=== PATIENT | female | born 1975 | race Caucasian/White ===

== ENCOUNTER → 2016-08-11 | Outpatient (REF) | payer OTHER ==
[~2016-08-11] MED LIST: FLAG500T; LEVA500T; PROZ20CA; VICO5TAB
[2016-08-11 21:25] LABS: FREE T4 1.46 NG/DL (0.76-1.46)
== END ==
LOC: M SFHCADAM 11:26
PROVIDERS: ATTEND Physician Assistant Medical
DX: E03.9 Hypothyroidism, unspecified (principal)

== ENCOUNTER → 2016-09-26 | Outpatient (REF) | payer OTHER ==
[2016-09-26 13:45] LABS: ALBUMIN 4.2 GM/DL (3.2-5.2); ALBUMIN/GLOBULIN RATIO 1.31 (1.00-1.93); ALKALINE PHOSPHATASE 109 U/L (45-117); ALT/SGPT 44 U/L (12-78); ANION GAP 9 MEQ/L (8-16); AST/SGOT 19 U/L (15-37); BILIRUBIN,TOTAL 0.3 MG/DL (0.2-1.0); BLOOD UREA NITROGEN 17 MG/DL (7-18); CALCIUM LEVEL 9.4 MG/DL (8.5-10.1); CARBON DIOXIDE LEVEL 27 MEQ/L (21-32); CHLORIDE LEVEL 103 MEQ/L (98-107); CREATININE FOR GFR 0.68 MG/DL (0.55-1.02); GLOMERULAR FILTRATION RATE > 60.0 (>58); GLUCOSE, FASTING 134 MG/DL (70-105); POTASSIUM SERUM 4.4 MEQ/L (3.5-5.1); SODIUM LEVEL 139 MEQ/L (136-145); TOTAL PROTEIN 7.4 GM/DL (6.4-8.2)
== END ==
LOC: M SFHCADAM 08:29
PROVIDERS: ATTEND Physician Assistant Medical
DX: E11.9 Type 2 diabetes mellitus without complications (principal)

== ENCOUNTER → 2017-01-01 | Outpatient (REF) | payer OTHER ==
[2017-01-01 12:57] LABS: ALBUMIN 4.1 GM/DL (3.2-5.2); ALBUMIN/GLOBULIN RATIO 1.24 (1.00-1.93); ALKALINE PHOSPHATASE 104 U/L (45-117); ALT/SGPT 32 U/L (12-78); ANION GAP 8 MEQ/L (8-16); AST/SGOT 14 U/L (15-37); BILIRUBIN,TOTAL 0.3 MG/DL (0.2-1.0); BLOOD UREA NITROGEN 13 MG/DL (7-18); CALCIUM LEVEL 9.5 MG/DL (8.5-10.1); CARBON DIOXIDE LEVEL 26 MEQ/L (21-32); CHLORIDE LEVEL 101 MEQ/L (98-107); CREATININE FOR GFR 0.64 MG/DL (0.55-1.02); GLOMERULAR FILTRATION RATE > 60.0 (>58); GLUCOSE, FASTING 161 MG/DL (70-105); POTASSIUM SERUM 4.4 MEQ/L (3.5-5.1); SODIUM LEVEL 135 MEQ/L (136-145); TOTAL PROTEIN 7.4 GM/DL (6.4-8.2)
== END ==
LOC: M SFHCADAM 08:59
PROVIDERS: ATTEND Physician Assistant Medical
DX: E11.9 Type 2 diabetes mellitus without complications (principal)

== ENCOUNTER → 2017-05-04 | Outpatient (REF) | payer OTHER | LOC: M LAB REF 11:22 | PROVIDERS: ATTEND Dermatology | DX: D18.09 Hemangioma of other sites (principal) ==

== ENCOUNTER → 2017-05-29 | Outpatient (REF) | payer OTHER ==
[2017-05-29 13:40] LABS: BASO # 0.1 10^3/uL (0.0-0.2); BASO % 0.8 % (0.0-1.0); EOS # 0.3 10^3/uL (0.0-0.50); EOS % 3.2 % (0.0-3.0); IMMATURE GRANULOCYTE % 0.5 % (0-0); LYMPH # 2.9 10^3/uL (1.5-4.5); LYMPH % 28.7 % (24.0-44.0); MEAN CORPUSCULAR HGB CONC 29.3 g/dl (32.0-36.5); MEAN CORPUSCULAR VOLUME 74.9 fl (80.0-96.0); MONO # 0.7 10^3/uL (0.0-0.8); MONO % 7.2 % (0.0-5.0); NEUTROPHILS % 59.6 % (36.0-66.0); PLATELET COUNT, AUTOMATED 432 10^3/uL (150-450); RED CELL DISTRIBUTION WIDTH 16.9 % (11.5-14.5)
[2017-05-29 14:06] LABS: FOLATE 12.2 NG/ML; PERCENT SATURATION 5.9 % (13.2-45.0)
== END ==
LOC: M SFHCADAM 09:26
PROVIDERS: ATTEND Physician Assistant Medical
DX: E55.9 Vitamin D deficiency, unspecified (principal); N92.1 Excessive and frequent menstruation with irregular cycle; D64.89 Other specified anemias

== ENCOUNTER → 2017-06-09 | Outpatient (CLI) | payer OTHER ==
--- NOTE | 2017-06-09 12:28 | REP ---
PELVIC ULTRASOUND: Real-time sonographic evaluation of the pelvis is performed utilizing transabdominal and endovaginal technique. The urinary bladder measures 8.4 x 6.3 x 9.2 cm. The uterus measures 9.0 x 5.1 x 6.0 cm. Fibroid in the right uterus measures 1.9 cm in diameter. Fibroid in the left uterus measures 2.6 cm in diameter. Nabothian cysts are seen in the region of the cervix. Both fibroids are posteriorly located. Endometrial thickness is 8 mm with no endometrial fluid collection. Ovaries are normal in size and echotexture, right ovary measuring 2.6 x 2.1 x 1.6 cm and the left ovary 2.5 x 1.5 x 2.1 cm. There is no adnexal mass or free fluid. IMPRESSION: Posterior right and left uterine fibroids. Signed by Sathish Rutledge MD 06/09/2017 04:57 P
== END ==
LOC: M WHC 10:13
PROVIDERS: ATTEND Nurse Practitioner Women's Health
DX: N92.1 Excessive and frequent menstruation with irregular cycle (principal); D25.9 Leiomyoma of uterus, unspecified

== ENCOUNTER → 2017-09-01 | Outpatient (REF) | payer OTHER ==
[2017-09-01 12:46] LABS: BASO # 0.1 10^3/uL (0.0-0.2); BASO % 0.7 % (0.0-1.0); EOS # 0.3 10^3/uL (0.0-0.50); EOS % 4.9 % (0.0-3.0); HEMATOCRIT 43.4 % (36.0-47.0); IMMATURE GRANULOCYTE % 0.3 % (0-3.0); LYMPH # 2.2 10^3/uL (1.5-4.5); LYMPH % 32.1 % (24.0-44.0); MEAN CORPUSCULAR HEMOGLOBIN 28.5 pg (27.0-33.0); MEAN CORPUSCULAR HGB CONC 32.3 g/dl (32.0-36.5); MEAN CORPUSCULAR VOLUME 88.2 fl (80.0-96.0); MONO # 0.5 10^3/uL (0.0-0.8); MONO % 7.1 % (0.0-5.0); NEUTROPHILS # 3.8 10^3/uL (1.8-7.7); NEUTROPHILS % 54.9 % (36.0-66.0); PLATELET COUNT, AUTOMATED 356 10^3/uL (150-450); RED BLOOD COUNT 4.92 10^6/uL (4.00-5.40); RED CELL DISTRIBUTION WIDTH 15.7 % (11.5-14.5); WHITE BLOOD COUNT 6.9 10^3/uL (4.0-10.0)
[2017-09-01 13:02] LABS: TOTAL 25(OH) VITAMIN D 39.8 NG/ML (30.0-100.0)
[2017-09-01 13:09] LABS: ALBUMIN 4.2 GM/DL (3.2-5.2); ALKALINE PHOSPHATASE 89 U/L (45-117); ALT/SGPT 50 U/L (12-78); ANION GAP 11 MEQ/L (8-16); AST/SGOT 24 U/L (7-37); BILIRUBIN,TOTAL 0.3 MG/DL (0.2-1.0); BLOOD UREA NITROGEN 16 MG/DL (7-18); CALCIUM LEVEL 9.2 MG/DL (8.5-10.1); CARBON DIOXIDE LEVEL 26 MEQ/L (21-32); CHLORIDE LEVEL 104 MEQ/L (98-107); CHOLESTEROL LEVEL 151 MG/DL (<200); CHOLESTEROL RISK RATIO 3.973 (<5); CREATININE FOR GFR 0.64 MG/DL (0.55-1.30); GLOMERULAR FILTRATION RATE > 60.0 (>58); GLUCOSE, FASTING 143 MG/DL (70-100); HDL CHOLESTEROL 38 MG/DL (>40); LDL CHOLESTEROL 82.8 MG/DL (<100); NON-HDL-C 113 MG/DL; POTASSIUM SERUM 4.1 MEQ/L (3.5-5.1); SODIUM LEVEL 141 MEQ/L (136-145); TOTAL PROTEIN 7.2 GM/DL (6.4-8.2); TRIGLYCERIDES LEVEL 151 MG/DL (<150)
[2017-09-01 13:10] LABS: ESTIMATED AVERAGE GLUCOSE 197 MG/DL (60-110); HEMOGLOBIN A1c 8.5 %
== END ==
LOC: M SFHCADAM 08:17
DX: E03.9 Hypothyroidism, unspecified (principal); E11.9 Type 2 diabetes mellitus without complications; E55.9 Vitamin D deficiency, unspecified
CPT/HCPCS: 84443

== ENCOUNTER → 2017-09-03 | Outpatient (REF) | payer OTHER ==
[2017-09-03 13:23] LABS: FERRITIN 27 NG/ML (8-252); IRON (FE) 55 UG/DL (50-170); PERCENT SATURATION 11.1 % (13.2-45.0); TOTAL IRON BINDING CAPACITY 495 UG/DL (250-450)
== END ==
LOC: M SFHCADAM 09:18
DX: D50.0 Iron deficiency anemia secondary to blood loss (chronic) (principal)

== ENCOUNTER → 2018-02-24 | Outpatient (REF) | payer OTHER ==
[2018-02-24 19:30] LABS: BASO # 0.1 10^3/uL (0.0-0.2); BASO % 0.7 % (0.0-1.0); EOS # 0.4 10^3/uL (0.0-0.50); EOS % 5.6 % (0.0-3.0); HEMATOCRIT 44.5 % (36.0-47.0); IMMATURE GRANULOCYTE % 0.5 % (0-3.0); LYMPH # 2.4 10^3/uL (1.5-4.5); LYMPH % 32.2 % (24.0-44.0); MEAN CORPUSCULAR HEMOGLOBIN 29.8 pg (27.0-33.0); MEAN CORPUSCULAR HGB CONC 31.5 g/dl (32.0-36.5); MEAN CORPUSCULAR VOLUME 94.7 fl (80.0-96.0); MONO # 0.4 10^3/uL (0.0-0.8); MONO % 5.8 % (0.0-5.0); NEUTROPHILS # 4.1 10^3/uL (1.8-7.7); NEUTROPHILS % 55.2 % (36.0-66.0); PLATELET COUNT, AUTOMATED 353 10^3/uL (150-450); RED CELL DISTRIBUTION WIDTH 13.7 % (11.5-14.5); WHITE BLOOD COUNT 7.4 10^3/uL (4.0-10.0)
[2018-02-24 19:37] LABS: TOTAL 25(OH) VITAMIN D 32.3 NG/ML (30.0-100.0)
[2018-02-24 19:39] LABS: ALBUMIN 3.8 GM/DL (3.2-5.2); ALBUMIN/GLOBULIN RATIO 1.15 (1.00-1.93); ALKALINE PHOSPHATASE 88 U/L (45-117); ALT/SGPT 40 U/L (12-78); ANION GAP 11 MEQ/L (8-16); AST/SGOT 17 U/L (7-37); BILIRUBIN,TOTAL 0.2 MG/DL (0.2-1.0); BLOOD UREA NITROGEN 8 MG/DL (7-18); CALCIUM LEVEL 9.1 MG/DL (8.5-10.1); CARBON DIOXIDE LEVEL 23 MEQ/L (21-32); CHLORIDE LEVEL 107 MEQ/L (98-107); CHOLESTEROL LEVEL 200 MG/DL (<200); CHOLESTEROL RISK RATIO 4.878 (<5); CREATININE FOR GFR 0.64 MG/DL (0.55-1.30); FERRITIN 21 NG/ML (8-252); FREE T4 1.03 NG/DL (0.76-1.46); GLOMERULAR FILTRATION RATE > 60.0 (>58); GLUCOSE, FASTING 138 MG/DL (70-100); HDL CHOLESTEROL 41 MG/DL (>40); IRON (FE) 50 UG/DL (50-170); LDL CHOLESTEROL 114.2 MG/DL (<100); NON-HDL-C 159 MG/DL; PERCENT SATURATION 11.4 % (13.2-45.0); POTASSIUM SERUM 4.3 MEQ/L (3.5-5.1); SODIUM LEVEL 141 MEQ/L (136-145); TOTAL IRON BINDING CAPACITY 437 UG/DL (250-450); TOTAL PROTEIN 7.1 GM/DL (6.4-8.2); TRIGLYCERIDES LEVEL 224 MG/DL (<150)
[2018-02-24 21:10] LABS: ESTIMATED AVERAGE GLUCOSE 189 MG/DL (60-110); HEMOGLOBIN A1c 8.2 %
== END ==
LOC: M SFHCADAM 11:26
DX: E11.9 Type 2 diabetes mellitus without complications (principal); D50.0 Iron deficiency anemia secondary to blood loss (chronic)
CPT/HCPCS: 83550

== ENCOUNTER → 2018-06-01 | Outpatient (REF) | payer OTHER, MEDICAID ==
[2018-06-01 13:34] LABS: FREE T4 1.22 NG/DL (0.76-1.46)
== END ==
LOC: M SFHCADAM 08:00
DX: E03.9 Hypothyroidism, unspecified (principal)
CPT/HCPCS: 84443

== ENCOUNTER → 2018-09-01 | Outpatient (REF) | payer OTHER, MEDICAID ==
[2018-09-01 12:48] LABS: BASO # 0.1 10^3/uL (0.0-0.2); BASO % 0.7 % (0.0-1.0); EOS # 0.3 10^3/uL (0.0-0.50); EOS % 3.7 % (0.0-3.0); HEMOGLOBIN 14.4 g/dl (12.0-15.5); LYMPH # 2.5 10^3/uL (1.5-4.5); LYMPH % 33.1 % (24.0-44.0); MEAN CORPUSCULAR HEMOGLOBIN 30.1 pg (27.0-33.0); MEAN CORPUSCULAR HGB CONC 33.5 g/dl (32.0-36.5); MEAN CORPUSCULAR VOLUME 89.8 fl (80.0-96.0); MONO # 0.5 10^3/uL (0.0-0.8); MONO % 6.6 % (0.0-5.0); NEUTROPHILS # 4.2 10^3/uL (1.8-7.7); NEUTROPHILS % 55.5 % (36.0-66.0); PLATELET COUNT, AUTOMATED 329 10^3/uL (150-450); RED BLOOD COUNT 4.79 10^6/uL (4.00-5.40); WHITE BLOOD COUNT 7.5 10^3/uL (4.0-10.0)
[2018-09-01 13:01] LABS: ALBUMIN 3.7 GM/DL (3.2-5.2); ALT/SGPT 38 U/L (12-78); BILIRUBIN,TOTAL 0.3 MG/DL (0.2-1.0); BLOOD UREA NITROGEN 15 MG/DL (7-18); CARBON DIOXIDE LEVEL 25 MEQ/L (21-32); CHLORIDE LEVEL 103 MEQ/L (98-107); CHOLESTEROL LEVEL 181 MG/DL (<200); CHOLESTEROL RISK RATIO 5.027 (<5); CREATININE FOR GFR 0.59 MG/DL (0.55-1.30); FERRITIN 23 NG/ML (8-252); GLOMERULAR FILTRATION RATE > 60.0 (>58); GLUCOSE, FASTING 253 MG/DL (70-100); HDL CHOLESTEROL 36 MG/DL (>40); IRON (FE) 52 UG/DL (50-170); NON-HDL-C 145 MG/DL; PERCENT SATURATION 12.2 % (13.2-45.0); POTASSIUM SERUM 4.1 MEQ/L (3.5-5.1); SODIUM LEVEL 136 MEQ/L (136-145); TOTAL IRON BINDING CAPACITY 426 UG/DL (250-450); TOTAL PROTEIN 6.9 GM/DL (6.4-8.2); TRIGLYCERIDES LEVEL 433 MG/DL (<150)
[2018-09-01 13:16] LABS: TOTAL 25(OH) VITAMIN D 31.7 NG/ML (30.0-100.0)
== END ==
LOC: M SFHCADAM 08:10
PROVIDERS: ATTEND Physician Assistant Medical
DX: E11.9 Type 2 diabetes mellitus without complications (principal); E03.9 Hypothyroidism, unspecified; E55.9 Vitamin D deficiency, unspecified; E78.2 Mixed hyperlipidemia; D50.0 Iron deficiency anemia secondary to blood loss (chronic)

== ENCOUNTER → 2018-10-15 | Outpatient (REF) | payer OTHER, MEDICAID ==
[2018-10-15 15:52] LABS: HEMOGLOBIN A1c 8.9 %
[2018-10-15 20:18] LABS: MALB URINE SIEMENS 27.5 MG/L
== END ==
LOC: M SFHCADAM 11:18
PROVIDERS: ATTEND Physician Assistant Medical
DX: E11.9 Type 2 diabetes mellitus without complications (principal); E03.9 Hypothyroidism, unspecified; E55.9 Vitamin D deficiency, unspecified; E78.2 Mixed hyperlipidemia; D50.0 Iron deficiency anemia secondary to blood loss (chronic)

== ENCOUNTER → 2018-10-25 | Outpatient (CLI) | payer OTHER ==
--- NOTE | 2018-10-25 13:17 | REPMRS ---
Patient History The patient states she had a clinical breast exam in 10/2018. Baseline Mammogram No known family history of cancer. Digital Woman Screen Mammo: October 25, 2018 - Exam #: [id number] Bilateral CC and MLO view(s) were taken. Technologist: Imani Veronica, Technologist FINDINGS: There are scattered fibroglandular densities. There is no evidence of dominant mass, architectural distortion, or clustered microcalcification typical of malignancy. 3-D tomosynthesis shows no additional findings. Assessment: BI-RADS/ACR category 1 mammogram. Negative Mammogram. Recommendation Routine screening mammogram of both breasts in 1 year (for women over age 40). This patient's Lifetime Breast Cancer RIsk is estimated at 10.4 %. This mammogram was interpreted with the aid of an FDA-approved computer-aided dectection system. Electronically Signed By: Ronald Lind MD 10/25/18 [id number]
== END ==
LOC: M WHC 10:37
PROVIDERS: ATTEND Nurse Practitioner Women's Health
DX: Z12.31 Encounter for screening mammogram for malignant neoplasm of breast (principal)

== ENCOUNTER → 2018-11-30 | Outpatient (CLI) | payer OTHER ==
--- NOTE | 2018-12-10 11:37 | REP ---
Clinical: Abnormal uterine bleeding. Menorrhagia . Technique: Transabdominal pelvic ultrasound followed by transvaginal examination for better evaluation of the endometrium and adnexa with color Doppler evaluation of the ovaries. Findings: Bladder is unremarkable and measures 8.8 x 4.2 x 4.8 cm . Heterogeneous myomatous uterus measures 12.3 x 5.6 x 6.8 cm . The endometrial complex measures 14.1 mm thickness. Posterior intramural fibroid measures 2.6 x 1.7 x 2.3 cm; anterior left lateral fibroid measures 2.9 x 2.5 x 2.4 cm; posterior subserosal fibroid measures 2.6 x 2.2 x 2.3 cm. Right ovary is not visualized. Left ovary measures 3.3 x 2.7 x 3.6 cm and includes 2.4 cm dominant follicle. Left RI = 0.54. Impression: 1. Heterogeneous myomatous uterus. 2. Left ovary without torsion. Right ovary not visualized. Electronically Signed by Tayo Murray MD 12/10/2018 11:28 A
== END ==
LOC: M RAD 09:32
PROVIDERS: ATTEND Obstetrics & Gynecology
DX: D25.9 Leiomyoma of uterus, unspecified (principal)

== ENCOUNTER → 2018-12-23 | Outpatient (REF) | payer OTHER, MEDICAID ==
[~2018-12-23] MED LIST changes: +OXYC1TAB23 PO
[2018-12-25 17:16] LABS: HPV HYBRID CAPTURE II Negative (Negative)
== END ==
LOC: M LAB REF 13:33
PROVIDERS: ATTEND Obstetrics & Gynecology
DX: N92.0 Excessive and frequent menstruation with regular cycle (principal)

== ENCOUNTER → 2019-01-11 | Outpatient (REF) | payer OTHER, MEDICAID ==
[~2019-01-11] MED LIST changes: +ATOR40TA75 PO; +BIOT10TA2 PO; +CALC600T5 PO; +FERR325T82 PO; +GEMF600T5 PO; +GLIP5TAB20 PO; +LEVO200T4 PO; +LISI-542 PO; +METF10004 PO; +TRUL0.5I SC; +VITA50005 PO; +VITA500T3 PO
[2019-01-11 12:54] LABS: BASO # 0.1 10^3/uL (0.0-0.2); BASO % 0.8 % (0.0-1.0); EOS # 0.2 10^3/uL (0.0-0.50); EOS % 2.8 % (0.0-3.0); HEMOGLOBIN 14.7 g/dl (12.0-15.5); LYMPH # 2.3 10^3/uL (1.5-4.5); LYMPH % 31.1 % (24.0-44.0); MEAN CORPUSCULAR HEMOGLOBIN 30.6 pg (27.0-33.0); MEAN CORPUSCULAR HGB CONC 33.4 g/dl (32.0-36.5); MEAN CORPUSCULAR VOLUME 91.5 fl (80.0-96.0); MONO # 0.5 10^3/uL (0.0-0.8); MONO % 7.5 % (0.0-5.0); NEUTROPHILS # 4.1 10^3/uL (1.8-7.7); NEUTROPHILS % 57.1 % (36.0-66.0); PLATELET COUNT, AUTOMATED 288 10^3/uL (150-450); RED BLOOD COUNT 4.81 10^6/uL (4.00-5.40); WHITE BLOOD COUNT 7.2 10^3/uL (4.0-10.0)
[2019-01-11 13:37] LABS: ALBUMIN 3.9 GM/DL (3.2-5.2); ALT/SGPT 54 U/L (12-78); BILIRUBIN,TOTAL 0.4 MG/DL (0.2-1.0); BLOOD UREA NITROGEN 13 MG/DL (7-18); CARBON DIOXIDE LEVEL 27 MEQ/L (21-32); CHLORIDE LEVEL 103 MEQ/L (98-107); CHOLESTEROL LEVEL 187 MG/DL (<200); CHOLESTEROL RISK RATIO 5.054 (<5); CREATININE FOR GFR 0.68 MG/DL (0.55-1.30); FERRITIN 50 NG/ML (8-252); GLOMERULAR FILTRATION RATE > 60.0 (>58); GLUCOSE, FASTING 211 MG/DL (70-100); HDL CHOLESTEROL 37 MG/DL (>40); IRON (FE) 71 UG/DL (50-170); LDL CHOLESTEROL 87 MG/DL (<100); NON-HDL-C 150 MG/DL; PERCENT SATURATION 15.6 % (13.2-45.0); POTASSIUM SERUM 4.2 MEQ/L (3.5-5.1); SODIUM LEVEL 137 MEQ/L (136-145); TOTAL 25(OH) VITAMIN D 30.7 NG/ML (30.0-100.0); TOTAL IRON BINDING CAPACITY 455 UG/DL (250-450); TOTAL PROTEIN 7.3 GM/DL (6.4-8.2); TRIGLYCERIDES LEVEL 316 MG/DL (<150)
[2019-01-11 14:40] LABS: HEMOGLOBIN A1c 8.6 %
== END ==
LOC: M SFHCADAM 09:23
PROVIDERS: ATTEND Physician Assistant Medical
DX: E11.9 Type 2 diabetes mellitus without complications (principal); E03.9 Hypothyroidism, unspecified; E55.9 Vitamin D deficiency, unspecified; E78.2 Mixed hyperlipidemia; D50.0 Iron deficiency anemia secondary to blood loss (chronic)

== ENCOUNTER → 2019-01-18 | Outpatient (CLI) | payer OTHER, MEDICAID ==
[~2019-01-18] MED LIST changes: +CYAN500T8 PO; +PERCOCET PO; -VITA500T3 PO
--- NOTE | 2019-01-19 07:22 | ECGEPIP ---
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
== END ==
LOC: M EKG 12:52
PROVIDERS: ATTEND Anesthesiology
DX: Z01.818 Encounter for other preprocedural examination (principal); E11.9 Type 2 diabetes mellitus without complications

== ENCOUNTER 2019-02-01 05:32 | Day surgery (SDC) | payer OTHER ==
[~2019-02-01] VITALS: Ht 154.9 cm; Wt 82.1 kg
[~2019-02-01 05:32] MED LIST changes: -PERCOCET PO
[2019-02-01] MEDS ORDERED: LR 1,000 ML IV ONE (06:00)
[2019-02-01 06:17] LABS: URINE PREG TEST NEGATIVE (NEGATIVE)
[2019-02-01] MEDS ORDERED: dexameTHASONE 4 MG/ML 1ML VIAL (J1100) As Ordered ONE ×2 (06:49→06:50)
[2019-02-01] MEDS ORDERED: KETOROLAC 60 MG/2 ML VIAL (J1885) As Ordered ONE (06:49)
[2019-02-01] MEDS ORDERED: ONDANSETRON 4MG/2ML VIAL (J2405) As Ordered ONE (06:49)
[2019-02-01] MEDS ORDERED: LIDOCAINE 2% INJ 100 MG/5 ML SDV (FOR ANES.) As Ordered ONE (06:50)
[2019-02-01] MEDS ORDERED: PROPOFOL 200 MG/20 ML VIAL As Ordered ONE (06:50)
[2019-02-01] MEDS ORDERED: ROCURONIUM BROMIDE 50 MG/5 ML VIAL As Ordered ONE ×2 (06:50→09:29)
[2019-02-01] MEDS ORDERED: MIDAZOLAM INJ 2 MG/2 ML VIAL (J2250) As Ordered ONE (06:55)
[2019-02-01] MEDS ORDERED: fentaNYL 250 MCG/5 ML INJECTION (J3010) As Ordered ONE (06:55)
[2019-02-01] MEDS ORDERED: BUPIVACAINE HCL 0.25% 30 ML VIAL As Ordered ONE (07:03)
[2019-02-01] MEDS ORDERED: METHYLENE BLUE 0.5% (5MG/ML) 10 ML AMP (PROVAYBLUE)(Q9968 PER 1MG) As Ordered ONE (07:03)
[2019-02-01] MEDS ORDERED: ACETAMINOPHEN 1000MG 100ML IV BTL (OFIRMEV) (J0131 PER 10MG) As Ordered ONE (07:45)
[2019-02-01] MEDS ORDERED: METOCLOPRAMIDE INJ 10MG/2ML VIAL (J2765) As Ordered ONE (08:17)
[2019-02-01] MEDS ORDERED: SUGAMMADEX SODIUM 500 MG/5 ML VIAL (BRIDION) As Ordered ONE (08:18)
[2019-02-01] MEDS ORDERED: HYDROmorphone HCL 2 MG/ML 1ML VIAL (J1170) As Ordered ONE (09:02)
[2019-02-01] MEDS ORDERED: KETAMINE HCL 200 MG/20 ML VIAL As Ordered ONE (09:26)
[2019-02-01] MEDS ORDERED: HumaLOG INSULIN (NovoLOG) PER UNIT As Ordered ONE (11:29)
[2019-02-01] MEDS ORDERED: PROMETHAZINE INJ 25 MG/ML VIAL (J2550) IV PRN (11:45)
[2019-02-01] MEDS ORDERED: ONDANSETRON 4MG/2ML VIAL (J2405) IV PRN (11:45)
[2019-02-01] MEDS ORDERED: MORPHINE 4 MG/ML 1ML VIAL/SYRINGE (J2270) IV PRN (11:45)
[2019-02-01] MEDS ORDERED: fentaNYL 100 MCG/2 ML INJECTION (J3010) IV PRN (11:45)
[2019-02-01] MEDS ORDERED: PERCOCET 5MG/325MG TAB PO PRN (11:45)
[2019-02-01] MEDS ORDERED: LR 1,000 ML IV SCH (11:45)
[2019-02-01] MEDS ORDERED: HumaLOG INSULIN (NovoLOG) PER UNIT SC ONE (11:45)
[2019-02-01] MEDS: oxyCODONE 5MG TAB PO PRN ×2 (11:53→12:23)
[2019-02-01] MEDS ORDERED: PERCOCET PO (12:03)
[2019-02-01 13:40] VITALS: BP 139/65
[2019-02-01 14:40] VITALS: BP 121/58
[2019-02-01 16:00] VITALS: BP 118/58
[2019-02-01] MEDS: KETOROLAC 30 MG/ML VIAL (J1885) IV SCH ×2 (17:17→22:25)
[2019-02-01 17:40] VITALS: BP 127/68
[2019-02-01] MEDS ORDERED: GLUCAGON FOR INJ 1 MG VIAL (J1610) SC PRN (18:00)
[2019-02-01] MEDS ORDERED: DEXTROSE 50% 50 ML SYRINGE IV PRN (18:00)
[2019-02-01] MEDS ORDERED: GLUCOSE 4 GM CHEW TABLET PO PRN (18:00)
[2019-02-01] MEDS ORDERED: SLF 3 ML SYR IV PRN (18:15)
[2019-02-01] MEDS: PERCOCET 5MG/325MG TAB PO PRN (19:20)
[2019-02-01 20:00] VITALS: BP 118/65
[2019-02-01] MEDS ORDERED: HumaLOG INSULIN (NovoLOG) PER UNIT SC SCH (21:00)
--- NOTE | 2019-02-01 22:25 | RO ---
DATE OF PROCEDURE: 02/01/2019 PREOPERATIVE DIAGNOSES: 1. Abnormal uterine bleeding. 2. Fibroid uterus. POSTOPERATIVE DIAGNOSES: 1. Abnormal uterine bleeding. 2. Fibroid uterus. PROCEDURES PERFORMED: 1. Robotic-assisted laparoscopic hysterectomy. 2. Lysis of adhesions. 3. Bilateral salpingectomy. 4. Cystoscopy. SURGEON: Carlotta Lee MD ASSISTANTS: Xiomara Jeffers NP and resident, Hermila Traylor MD, PGY3 ANESTHESIA: General endotracheal anesthesia. ESTIMATED BLOOD LOSS: 50 mL. INTRAVENOUS FLUIDS: 2100 mL of lactated Ringer's solution. URINE OUTPUT: 200 mL. PREOPERATIVE ANTIBIOTICS: 2 grams of Ancef. INFECTION CLASSIFICATION: 2. SPECIMENS: Cervix, uterus, bilateral fallopian tube. OPERATIVE FINDINGS: Patient with a large fibroid uterus, normal appearing adnexa, dense abdominal adhesions involving the lower uterine segment to the anterior abdominal wall, extensive omental adhesions to the anterior abdominal wall. Cystoscopic findings revealed normal bladder mucosa, bilateral ureteral jets were observed. No foreign bodies or objects observed. DESCRIPTION OF OPERATION: After informed consent was obtained and written consent was reviewed, the patient was brought to the operating room where she was placed under general anesthesia. She was then placed in the lithotomy position and was prepped and draped in a normal sterile fashion. A time-out in the operating room was performed identifying the patient, procedure to be performed, as well as drug allergies. A speculum was placed revealing the cervix, the anterior aspect of the cervix was stitched with #0 Vicryl, a small VCare uterine manipulator was advanced through the cervical os and was insufflated with 7 mL of air. The cervical cap as well as the vaginal sleeve was advanced into the vagina. Instruments were removed from the vagina. Graham catheter was then placed and set to gravity. Gloves were changed, and attention was turned to the patient's abdomen where Veress needle was placed through the umbilicus. A pneumoperitoneum was obtained with CO2 gas. The supraumbilical area was infused with 0.25% Marcaine and an incision was made in this area. 8 mm trocar and sleeve was advanced through this incision, laparoscope was then placed revealing intraabdominal placement. Four additional port sites were placed, two to each side of the umbilicus. Each one of these areas were infused with 0.25% Marcaine. Incisions were made in each one of these areas and 8 mm trocar and sleeve were advanced through these incisions under direct visualization. Next, the Da Trace was then docked, utilizing a camera arm with three operative arms. Lysis of adhesions was then performed, releasing the omentum adhesions from the anterior abdominal wall. Lysis of adhesions was continued along the lower uterine segment which was adhered to the anterior abdominal wall. Next, the mesosalpinx bilaterally were cauterized and ligated with good hemostasis noted. The utero-ovarian ligaments bilaterally cauterized and ligated with good hemostasis noted. The round ligaments on both sides were cauterized and ligated with good hemostasis noted. Next, the anterior lip of the broad ligament was dissected along the bladder, creating a bladder flap. The remainder of the broad and cardinal ligaments were cauterized and ligated with good hemostasis noted. The uterine vessels were then skeletonized bilaterally and were cauterized and ligated with good hemostasis noted. Next, utilizing Endo monopolar scissors, anterior and posterior colpotomies were made. Then, the uterus was detached. The Da Trace was then undocked. I then proceeded to bivalving the uterus and removed it vaginally. The Da Trace was then redocked, surgical sites were inspected and noted to be hemostatic. The vaginal cuff was then closed using an #0 V-Loc system in a running nonlocking fashion. Surgical sites were irrigated. Maria Victoria was applied over the surgical field. The Da Trace was then undocked, Graham catheter was removed and cystoscopy was performed. The cystoscope was advanced transurethrally through the bladder. Cystoscopy was performed showing normal bladder mucosa. No foreign objects. Bilateral jets were observed. The cystoscope was then removed, the bladder was drained. Attention was then turned to the patient's abdomen. All five port sites were closed with #4-0 Monocryl and dressed with Dermabond. The patient was then taken out of the lithotomy position, was awakened from general anesthesia and taken to recovery in stable condition. Counts were correct. Xiomara Jeffers, my surgical physician assistant, played an essential role during the surgery. She assisted with port placement, manipulation of the uterus. Edited 02/01/2019 tori TOLEDO
[2019-02-01] MEDS: SLF 3 ML SYR IV SCH (22:26)
[2019-02-02] VITALS: BP 104/60
[2019-02-02] MEDS: PERCOCET 5MG/325MG TAB PO PRN ×2 (01:49→08:18)
[2019-02-02 04:00] VITALS: BP 110/55
[2019-02-02] MEDS: KETOROLAC 30 MG/ML VIAL (J1885) IV SCH ×2 (04:30→10:53)
[2019-02-02] MEDS: SLF 3 ML SYR IV SCH (05:56)
[2019-02-02 06:53] LABS: HEMATOCRIT 35.3 % (36.0-47.0); HEMOGLOBIN 11.5 g/dl (12.0-15.5); MEAN CORPUSCULAR HEMOGLOBIN 30.1 pg (27.0-33.0); MEAN CORPUSCULAR HGB CONC 32.6 g/dl (32.0-36.5); MEAN CORPUSCULAR VOLUME 92.4 fl (80.0-96.0); PLATELET COUNT, AUTOMATED 252 10^3/uL (150-450); RED BLOOD COUNT 3.82 10^6/uL (4.00-5.40); WHITE BLOOD COUNT 8.2 10^3/uL (4.0-10.0)
[2019-02-02] MEDS ORDERED: HumaLOG INSULIN (NovoLOG) PER UNIT SC SCH (07:30)
--- NOTE | 2019-02-02 07:36 | IPNPDOC ---
Date Seen The patient was seen on 02/02/19. Progress Note SUBJECTIVE: 43 yo POD#1 s/p RA TLH, BS, cysto for abnormal uterine bleeding. She is feeling well this am. Pain has been well controlled. She is tolerating PO, voiding, and ambulating. No CP, SOB, dizziness, n/v OBJECTIVE PHYSICAL EXAMINATION: VITAL SIGNS: Please see below. GENERAL: NAD CARDIOVASCULAR: RRR RESPIRATORY: CTA b/l ABDOMINAL: obese, soft, non tender. 5 lsc port sites c/d/i with glue over incisions EXTREMITIES: wwp, non tender LABORATORY DATA, IMAGING STUDIES, MICROBIOLOGY: Please see below. ASSESSMENT AND PLAN: 43 yo POD#1 s/p RA TONYH, BS, cysto for abnormal uterine bleeding and fibroids, stable and recovering well. T PLAN: Neuro/pain: continue current pain regimen CV/Pulm: no acute issues. Continue HLD/HTN medications at home FEN/GI: tolerating regular diet. Zofran prn, colace prn Endo: DMII: on ISS while admitted, will transition back to PO meds on discharge. Continue synthroid for hypothyroidism : voiding spontaneously Heme: Hct 35 this am PPx: encourage ambulation, SCDs DISPOSITION: d/c home today VS, I&O, 24H, [facility] Vital Signs/I&O Vital Signs Date Time Temp Pulse Resp B/P (MAP) Pulse Ox O2 Delivery O2 Flow Rate FiO2 02/02/19 04:00 97.9 66 18 110/55 (73) 95 02/01/19 11:39 2 I&O- Last 24 Hours up to 6 AM 02/02/19 05:59 Intake Total 3080 ml Output Total 1650 ml Balance 1430 ml Laboratory Data 24H LABS Laboratory Tests 2 02/01/19 08:46: Bedside Glucose (Misc Panel) 228H 02/01/19 11:18: Bedside Glucose (Misc Panel) 287H 02/01/19 12:10: Bedside Glucose (Misc Panel) 339H 02/01/19 12:12: Bedside Glucose (Misc Panel) 283H 02/01/19 13:08: Bedside Glucose (Misc Panel) 277H 02/01/19 17:26: Bedside Glucose (Misc Panel) 248H 02/01/19 20:33: Bedside Glucose (Misc Panel) 393H 02/02/19 06:24: Nucleated Red Blood Cells % (auto) 0.0 CBC/BMP Laboratory Tests 02/02/19 06:24 Red Blood Count 3.82 L, Mean Corpuscular Volume 92.4, Mean Corpuscular Hemoglobin 30.1, Mean Corpuscular Hemoglobin Concent 32.6, Red Cell Distribution Width 13.2 OMID RUVALCABA PGY-3 Feb 02, 2019 07:36
--- NOTE | 2019-02-02 07:40 | DS.PDOC ---
Discharge Summary General Date of Admission Date of Discharge 02/02/19 Attending Physician: VADIM ESPINOSA MD. Discharge Summary PROCEDURES PERFORMED DURING STAY: RA TLH, BS, cysto. ADMITTING DIAGNOSES: 1. abnormal uterine bleeding 2. fibroid uterus DISCHARGE DIAGNOSES: 1. s/p robotic assisted hysterectomy COMPLICATIONS/CHIEF COMPLAINT: Abnormal Uterine Bleeding. HISTORY OF PRESENT ILLNESS: 43 yo with long history of menorrhagia and known fibroid uterus presenting for definitive management HOSPITAL COURSE: On 02/01 she underwent RA TLH, BS, cysto. Procedure was notable for multiple adhesions of uterus to anterior abdominal wall. Please see operative note for details. She was admitted overnight for observation. She voided on POD#0, her pain was well controlled. Her diet was advanced. She was discharged home on POD#1. She was continued on her home medications while admitted with the exception of oral hypoglycemics, she was treated with an insulin sliding scale. DISCHARGE MEDICATIONS: Please see below. ALLERGIES: Please see below. LABORATORY DATA: Please see below. ACTIVITY: As tolerated. DIET: diabetic DISCHARGE PLAN: d/c home without services DISCHARGE INSTRUCTIONS: 1. Please follow up in 2 weeks as scheduled 2. If you experience any of the following, please call or present to care: fever >100.4, severe pain not controlled with medications, inability to tolerate eating or drinking, heavy vaginal bleeding, or any other concerning symptoms. DISCHARGE CONDITION: Stable. TIME SPENT ON DISCHARGE: Greater than 25 minutes. Vital Signs/I&Os Vital Signs Date Time Temp Pulse Resp B/P (MAP) Pulse Ox O2 Delivery O2 Flow Rate FiO2 02/02/19 04:00 97.9 66 18 110/55 (73) 95 02/01/19 11:39 2 I&O- Last 24 Hours up to 6 AM 02/02/19 05:59 Intake Total 3080 ml Output Total 1650 ml Balance 1430 ml Laboratory Data Labs 24H Laboratory Tests 2 02/01/19 08:46: Bedside Glucose (Misc Panel) 228H 02/01/19 11:18: Bedside Glucose (Misc Panel) 287H 02/01/19 12:10: Bedside Glucose (Misc Panel) 339H 02/01/19 12:12: Bedside Glucose (Misc Panel) 283H 02/01/19 13:08: Bedside Glucose (Misc Panel) 277H 02/01/19 17:26: Bedside Glucose (Misc Panel) 248H 02/01/19 20:33: Bedside Glucose (Misc Panel) 393H 02/02/19 06:24: Nucleated Red Blood Cells % (auto) 0.0 CBC/BMP Laboratory Tests 02/02/19 06:24 Red Blood Count 3.82 L, Mean Corpuscular Volume 92.4, Mean Corpuscular Hemoglobin 30.1, Mean Corpuscular Hemoglobin Concent 32.6, Red Cell Distribution Width 13.2 FSBS Laboratory Tests Test 02/01/19 08:46 02/01/19 11:18 02/01/19 12:10 02/01/19 12:12 Range/Units Bedside Glucose (Misc Panel) 228 287 339 283 70-105 MG/DL Test 02/01/19 13:08 02/01/19 17:26 02/01/19 20:33 Range/Units Bedside Glucose (Misc Panel) 277 248 393 70-105 MG/DL Discharge Medications Scheduled Atorvastatin Calcium (Atorvastatin Calcium) 40 Mg Tablet, 40 MG PO DAILY, (Reported) Biotin (Biotin) 10 Mg Tablet, 10 MG PO DAILY, (Reported) Calcium Carbonate (Calcium) 600 Mg Tablet, 600 MG PO DAILY, (Reported) Cyanocobalamin (Vitamin B-12) (Vitamin B-12) 500 Mcg Tablet, 500 MCG PO DAILY, (Reported) Dulaglutide (Trulicity) 1.5 Mg/0.5 Ml Pen.injctr, 1.5 MG SC QWEEK, (Reported) thursday Ergocalciferol (Vitamin D2) (Vitamin D2) 50,000 Unit Capsule, 50,000 UNIT PO QWEEK, (Reported) thursday Ferrous Sulfate (Iron) 325 Mg Tablet, 325 MG PO TID, (Reported) Gemfibrozil (Gemfibrozil) 600 Mg Tablet, 600 MG PO BID, (Reported) Glipizide (Glipizide ER) 5 Mg Tab.er.24, 10 MG PO BID, (Reported) Levothyroxine Sodium (Levothyroxine Sodium) 200 Mcg Tablet, 200 MCG PO DAILY, (Reported) Lisinopril (Lisinopril) 5 Mg Tablet, 2.5 MG PO DAILY, (Reported) Metformin HCl (Metformin HCl) 1,000 Mg Tablet, 1,000 MG PO BID, (Reported) Scheduled PRN Oxycodone/Acetaminophen (Oxycodone-Acetaminophen 5-325) 1 Each Tablet, 1-2 TAB PO Q6-8HP PRN for MODERATE PAIN Allergies Coded Allergies: aspirin (Verified Adverse Reaction, Intermediate, vomiting, migraines, 02/01/19) caffeine (Verified Adverse Reaction, Intermediate, vomiting, migraines, 02/01/19) OMID RUVALCABA PGY-3 Feb 02, 2019 07:40
[2019-02-02 08:00] VITALS: BP 124/61
== END 2019-02-02 11:55 | disposition home or self-care (01) ==
LOC: M SDC 05:32 → M PED 13:40 → M SDC 02-02 11:55
PROVIDERS: ATTEND Obstetrics & Gynecology
DX: N93.9 Abnormal uterine and vaginal bleeding, unspecified (principal); D25.1 Intramural leiomyoma of uterus; N72 Inflammatory disease of cervix uteri; E11.9 Type 2 diabetes mellitus without complications; E03.9 Hypothyroidism, unspecified; D64.9 Anemia, unspecified; F41.9 Anxiety disorder, unspecified; F32.9 Major depressive disorder, single episode, unspecified; G43.909 Migraine, unspecified, not intractable, without status migrainosus; Z88.6 Allergy status to analgesic agent; Z91.09 Other allergy status, other than to drugs and biological substances; Z79.899 Other long term (current) drug therapy
CPT/HCPCS: 36415; 58571; 84703; 85027; 86850; 86900; 86901; 88307; 96372; 96374; 96375; J0131; J0690; J1100; J1170; J1885; J2250; J2270; J2405; J2765; J3010; Q9968

== ENCOUNTER → 2019-03-01 | Outpatient (REF) | payer OTHER, MEDICAID ==
[~2019-03-01] MED LIST changes: +PERCOCET PO
== END ==
LOC: M SFHCADAM 12:00
PROVIDERS: ATTEND Physician Assistant Medical
DX: E03.9 Hypothyroidism, unspecified (principal)

== ENCOUNTER → 2019-08-03 | Outpatient (REF) | payer OTHER, MEDICAID ==
[2019-08-03 12:55] LABS: BASO # 0.1 10^3/uL (0.0-0.2); BASO % 0.7 % (0.0-1.0); EOS # 0.1 10^3/uL (0.0-0.5); HEMATOCRIT 48.5 % (36.0-47.0); HEMOGLOBIN 15.7 g/dl (12.0-15.5); LYMPH # 2.3 10^3/uL (1.5-5.0); LYMPH % 33.2 % (24.0-44.0); MEAN CORPUSCULAR HEMOGLOBIN 29.3 pg (27.0-33.0); MEAN CORPUSCULAR HGB CONC 32.4 g/dl (32.0-36.5); MEAN CORPUSCULAR VOLUME 90.7 fl (80.0-96.0); MONO # 0.5 10^3/uL (0.0-0.8); NEUTROPHILS # 3.9 10^3/uL (1.5-8.5); NEUTROPHILS % 56.8 % (36.0-66.0); PLATELET COUNT, AUTOMATED 307 10^3/uL (150-450); RED BLOOD COUNT 5.35 10^6/uL (4.00-5.40); WHITE BLOOD COUNT 6.9 10^3/uL (4.0-10.0)
[2019-08-03 13:13] LABS: ALBUMIN 4.1 GM/DL (3.2-5.2); ALT/SGPT 35 U/L (12-78); BILIRUBIN,TOTAL 0.5 MG/DL (0.2-1.0); BLOOD UREA NITROGEN 15 MG/DL (7-18); CALCIUM LEVEL 9.5 MG/DL (8.5-10.1); CARBON DIOXIDE LEVEL 26 MEQ/L (21-32); CHLORIDE LEVEL 102 MEQ/L (98-107); CREATININE FOR GFR 0.62 MG/DL (0.55-1.30); FERRITIN 75 NG/ML (8-252); GLOMERULAR FILTRATION RATE > 60.0 (>58); GLUCOSE, FASTING 237 MG/DL (70-100); IRON (FE) 111 UG/DL (50-170); PERCENT SATURATION 22.7 % (13.2-45.0); POTASSIUM SERUM 4.4 MEQ/L (3.5-5.1); SODIUM LEVEL 137 MEQ/L (136-145); TOTAL IRON BINDING CAPACITY 488 UG/DL (250-450); TOTAL PROTEIN 7.4 GM/DL (6.4-8.2)
[2019-08-03 14:56] LABS: HEMOGLOBIN A1c 10.3 %
== END ==
LOC: M SFHCADAM 07:59
PROVIDERS: ATTEND Family Medicine
DX: Z00.00 Encounter for general adult medical examination without abnormal findings (principal); D50.0 Iron deficiency anemia secondary to blood loss (chronic); E11.65 Type 2 diabetes mellitus with hyperglycemia

== ENCOUNTER → 2019-08-10 | Outpatient (REF) | payer OTHER, MEDICAID ==
[2019-08-10 19:44] LABS: MALB URINE SIEMENS 64.7 MG/L; MAU/CREAT RATIO 46.8 MCG/MG (0.0-30.0)
== END ==
LOC: M SFHCADAM 16:05
PROVIDERS: ATTEND Family Medicine
DX: E11.65 Type 2 diabetes mellitus with hyperglycemia (principal)

== ENCOUNTER → 2019-09-18 | Outpatient (REF) | payer OTHER, MEDICAID ==
[2019-09-18 17:41] LABS: HEMOGLOBIN A1c 9.7 %
== END ==
LOC: M SFHCADAM 08:37
PROVIDERS: ATTEND Family Medicine
DX: E11.65 Type 2 diabetes mellitus with hyperglycemia (principal)

== ENCOUNTER → 2019-12-29 | Outpatient (CLI) | payer OTHER ==
--- NOTE | 2019-12-29 17:10 | REPMRS ---
Patient History The patient states she has not had a clinical breast exam in over a year. No known family history of cancer. 3D TOMOSYNTHESIS WAS PERFORMED. [facility] lifetime risk for breast cancer is 10.2%. VOLOSITOA SHAHEEN B. Digital Woman Screen Mammo: December 29, 2019 - Exam #: [id number] Bilateral CC and MLO view(s) were taken. Technologist: Jolene Weston, Technologist Prior study comparison: October 25, 2018, bilateral digital woman screen mammo performed at [facility] [place]. FINDINGS: There are scattered fibroglandular densities. There has been no change in the appearance of the mammogram from the prior studies. There is a mild amount of residual fibroglandular tissue which is fairly symmetric. There is no interval development of dominant mass, architectural distortion, or clustered microcalcification suggestive of malignancy. Assessment: BI-RADS/ACR category 1 mammogram. Negative Mammogram. Recommendation Routine screening mammogram in 1 year (for women over age 40). This mammogram was interpreted with the aid of an FDA-approved computer-aided dectection system. Electronically Signed By: Sathish Rutledge MD 12/29/19 [id number]
== END ==
LOC: M WHC 16:25
PROVIDERS: ATTEND Nurse Practitioner Women's Health
DX: Z12.31 Encounter for screening mammogram for malignant neoplasm of breast (principal)

== ENCOUNTER → 2020-03-06 | Outpatient (REF) | payer OTHER, MEDICAID ==
[~2020-03-06] MED LIST changes: -CALC600T5 PO; +CALC600T61 PO
[2020-05-16 03:24] LABS: ALBUMIN 4.2 GM/DL (3.2-5.2); ALT/SGPT 36 U/L (12-78); BILIRUBIN,TOTAL 0.8 MG/DL (0.2-1.0); BLOOD UREA NITROGEN 18 MG/DL (7-18); CALCIUM LEVEL 9.8 MG/DL (8.5-10.1); CARBON DIOXIDE LEVEL 25 MEQ/L (21-32); CHLORIDE LEVEL 100 MEQ/L (98-107); GLOMERULAR FILTRATION RATE > 60.0 (>58); GLUCOSE, FASTING 242 MG/DL (70-100); HEMOGLOBIN A1c 10.4 %; POTASSIUM SERUM 4.2 MEQ/L (3.5-5.1); SODIUM LEVEL 134 MEQ/L (136-145); TOTAL PROTEIN 7.7 GM/DL (6.4-8.2)
== END ==
LOC: M SFHCADAM 11:37
PROVIDERS: ATTEND Family Medicine
DX: E11.8 Type 2 diabetes mellitus with unspecified complications (principal)

== ENCOUNTER → 2020-04-21 | Outpatient (CLI) | payer OTHER ==
[2020-04-21 10:02] LABS: HEMOGLOBIN A1c 9.5 %
== END ==
LOC: M LAB 08:26
PROVIDERS: ATTEND Family Medicine
DX: E11.9 Type 2 diabetes mellitus without complications (principal)

== ENCOUNTER → 2020-07-27 | Outpatient (REF) | payer OTHER, MEDICAID ==
[~2020-07-27] MED LIST changes: +CYAN500T14 PO; -CYAN500T8 PO
[2020-07-27 13:21] LABS: BASO % 0.4 % (0.0-1.0); EOS # 0.2 10^3/uL (0.0-0.5); EOS % 2.2 % (0.0-3.0); HEMATOCRIT 45.2 % (36.0-47.0); HEMOGLOBIN 14.6 g/dl (12.0-15.5); LYMPH # 2.7 10^3/uL (1.5-5.0); LYMPH % 36.4 % (24.0-44.0); MEAN CORPUSCULAR HEMOGLOBIN 28.5 pg (27.0-33.0); MEAN CORPUSCULAR HGB CONC 32.3 g/dl (32.0-36.5); MEAN CORPUSCULAR VOLUME 88.1 fl (80.0-96.0); MONO # 0.6 10^3/uL (0.0-0.8); MONO % 7.6 % (0.0-5.0); NEUTROPHILS # 3.9 10^3/uL (1.5-8.5); NEUTROPHILS % 53.3 % (36.0-66.0); PLATELET COUNT, AUTOMATED 304 10^3/uL (150-450); RED BLOOD COUNT 5.13 10^6/uL (4.00-5.40); WHITE BLOOD COUNT 7.3 10^3/uL (4.0-10.0)
[2020-07-27 13:57] LABS: ALT/SGPT 46 U/L (12-78); BILIRUBIN,TOTAL 0.5 MG/DL (0.2-1.0); BLOOD UREA NITROGEN 15 MG/DL (7-18); CALCIUM LEVEL 9.1 MG/DL (8.5-10.1); CARBON DIOXIDE LEVEL 27 MEQ/L (21-32); CHLORIDE LEVEL 106 MEQ/L (98-107); GLOMERULAR FILTRATION RATE > 60.0 (>58); GLUCOSE, FASTING 140 MG/DL (70-100); SODIUM LEVEL 140 MEQ/L (136-145); TOTAL PROTEIN 6.7 GM/DL (6.4-8.2)
[2020-07-27 15:12] LABS: HEMOGLOBIN A1c 9.1 %
== END ==
LOC: M SFHCADAM 08:04
PROVIDERS: ATTEND Family Medicine
DX: Z00.00 Encounter for general adult medical examination without abnormal findings (principal)

== ENCOUNTER → 2021-01-07 | Outpatient (REF) | payer OTHER, MEDICAID ==
[~2021-01-07] MED LIST changes: -LISI-542 PO; +LISI-898 PO
[2021-01-07 13:30] LABS: ALBUMIN 3.7 GM/DL (3.2-5.2); ALT/SGPT 31 U/L (12-78); BILIRUBIN,TOTAL 0.4 MG/DL (0.2-1.0); BLOOD UREA NITROGEN 13 MG/DL (7-18); CALCIUM LEVEL 9.2 MG/DL (8.5-10.1); CARBON DIOXIDE LEVEL 27 MEQ/L (21-32); CHLORIDE LEVEL 105 MEQ/L (98-107); CREATININE FOR GFR 0.59 MG/DL (0.55-1.30); GLOMERULAR FILTRATION RATE > 60.0 (>58); GLUCOSE, FASTING 159 MG/DL (70-100); POTASSIUM SERUM 4.1 MEQ/L (3.5-5.1); SODIUM LEVEL 137 MEQ/L (136-145); TOTAL PROTEIN 7.1 GM/DL (6.4-8.2)
[2021-01-07 13:36] LABS: CREATININE, URINE 64.1 MG/DL; MALB URINE SIEMENS 9.4 MG/L; MAU/CREAT RATIO 14.6 MCG/MG (0.0-30.0)
[2021-01-07 14:01] LABS: HEMOGLOBIN A1c 9.2 %
== END ==
LOC: M SFHCADAM 08:49
PROVIDERS: ATTEND Family Medicine
DX: E11.69 Type 2 diabetes mellitus with other specified complication (principal)

== ENCOUNTER → 2021-07-02 | Outpatient (REF) | payer OTHER, MEDICAID ==
[~2021-07-02] MED LIST changes: -LISI-898 PO; +LISI5TAB11 PO
[2021-07-02 13:04] LABS: ALBUMIN 3.5 GM/DL (3.2-5.2); ALT/SGPT 58 U/L (12-78); BILIRUBIN,TOTAL 0.5 MG/DL (0.2-1.0); BLOOD UREA NITROGEN 10 MG/DL (7-18); CALCIUM LEVEL 9.2 MG/DL (8.5-10.1); CARBON DIOXIDE LEVEL 28 MEQ/L (21-32); CHLORIDE LEVEL 107 MEQ/L (98-107); CREATININE FOR GFR 0.56 MG/DL (0.55-1.30); GLOMERULAR FILTRATION RATE > 60.0 (>58); GLUCOSE, FASTING 112 MG/DL (70-100); POTASSIUM SERUM 4.1 MEQ/L (3.5-5.1); SODIUM LEVEL 141 MEQ/L (136-145); TOTAL PROTEIN 6.9 GM/DL (6.4-8.2)
[2021-07-02 13:19] LABS: HEMOGLOBIN A1c 8.6 %
== END ==
LOC: M SFHCADAM 09:22
PROVIDERS: ATTEND Family Medicine
DX: E11.65 Type 2 diabetes mellitus with hyperglycemia (principal)

== ENCOUNTER → 2022-01-07 | Outpatient (REF) | payer OTHER, MEDICAID ==
[2022-01-07 13:47] LABS: FREE T4 1.8 NG/DL (0.76-1.46); THYROID STIMULATING HORMONE 0.011 uIU/ML (0.358-3.740)
== END ==
LOC: M SFHCADAM 08:15
PROVIDERS: ATTEND Family Medicine
DX: E03.9 Hypothyroidism, unspecified (principal)

== ENCOUNTER → 2022-04-02 | Outpatient (CLI) | payer OTHER ==
[2022-04-02 14:57] LABS: ALBUMIN 3.6 GM/DL (3.2-5.2); ALT/SGPT 40 U/L (12-78); BILIRUBIN,TOTAL 0.6 MG/DL (0.2-1.0); BLOOD UREA NITROGEN 14 MG/DL (7-18); CALCIUM LEVEL 9.1 MG/DL (8.5-10.1); CARBON DIOXIDE LEVEL 28 MEQ/L (21-32); CHLORIDE LEVEL 106 MEQ/L (98-107); CREATININE FOR GFR 0.51 MG/DL (0.55-1.30); GLOMERULAR FILTRATION RATE > 60.0 (>58); GLUCOSE, FASTING 77 MG/DL (70-100); SODIUM LEVEL 139 MEQ/L (136-145); TOTAL PROTEIN 6.6 GM/DL (6.4-8.2)
[2022-04-02 15:05] LABS: HEMOGLOBIN A1c 6.8 %
== END ==
LOC: M PLALAB 11:09
PROVIDERS: ATTEND Family Medicine
DX: E11.69 Type 2 diabetes mellitus with other specified complication (principal)

== ENCOUNTER → 2022-06-11 | Outpatient (CLI) | payer OTHER ==
[2022-06-11 11:09] LABS: FREE T4 1.59 NG/DL (0.89-1.76); THYROID STIMULATING HORMONE 0.283 uIU/ML (0.55-4.78); TOTAL 25(OH) VITAMIN D 88.4 NG/ML (20.0-100.0)
== END ==
LOC: M PLALAB 08:46
PROVIDERS: ATTEND Family Medicine
DX: E03.9 Hypothyroidism, unspecified (principal)

== ENCOUNTER → 2022-07-10 | Outpatient (REF) | payer OTHER, MEDICAID ==
[2022-07-10 15:08] LABS: THYROID STIMULATING HORMONE 2.769 uIU/ML (0.55-4.78)
[2022-07-10 15:09] LABS: HEMOGLOBIN A1c 6.1 % (4.0-6.0)
[2022-07-10 15:10] LABS: ALBUMIN 3.8 G/DL (3.2-5.2); ALKALINE PHOSPHATASE 104 U/L (46-116); ALT/SGPT 32 U/L (7.0-40); AST/SGOT 23 U/L (<34); BILIRUBIN,TOTAL 0.5 MG/DL (0.3-1.2); BLOOD UREA NITROGEN 15 MG/DL (9-23); CALCIUM LEVEL 9.7 MG/DL (8.5-10.1); CARBON DIOXIDE LEVEL 24 MMOL/L (20-31); CHLORIDE LEVEL 106 MMOL/L (98-107); CREATININE FOR GFR 0.62 MG/DL (0.55-1.30); GLOMERULAR FILTRATION RATE > 60.0 (>58); GLUCOSE, FASTING 87 MG/DL (60-100); POTASSIUM SERUM 4.5 MMOL/L (3.5-5.1); SODIUM LEVEL 142 MMOL/L (136-145); TOTAL PROTEIN 6.5 G/DL (5.7-8.2)
[2022-07-10 15:11] LABS: FREE T4 1.42 NG/DL (0.89-1.76)
== END ==
LOC: M SFHCADAM 13:23
PROVIDERS: ATTEND Family Medicine
DX: E11.69 Type 2 diabetes mellitus with other specified complication (principal); E03.9 Hypothyroidism, unspecified

== ENCOUNTER → 2022-10-31 | Outpatient (CLI) | payer OTHER ==
[2022-10-31 15:04] LABS: ALBUMIN 3.6 G/DL (3.2-5.2); ALKALINE PHOSPHATASE 94 U/L (46-116); ALT/SGPT 28 U/L (7.0-40); AST/SGOT 19 U/L (<34); BILIRUBIN,TOTAL 0.7 MG/DL (0.3-1.2); BLOOD UREA NITROGEN 13 MG/DL (9-23); CALCIUM LEVEL 8.8 MG/DL (8.5-10.1); CARBON DIOXIDE LEVEL 28 MMOL/L (20-31); CHLORIDE LEVEL 105 MMOL/L (98-107); CREATININE FOR GFR 0.62 MG/DL (0.55-1.30); GLOMERULAR FILTRATION RATE > 60.0 (>58); GLUCOSE, FASTING 82 MG/DL (60-100); POTASSIUM SERUM 4.5 MMOL/L (3.5-5.1); SODIUM LEVEL 140 MMOL/L (136-145); TOTAL PROTEIN 6.2 G/DL (5.7-8.2)
[2022-10-31 16:23] LABS: HEMOGLOBIN A1c 7.4 % (4.0-6.0)
== END ==
LOC: M PLALAB 09:40
PROVIDERS: ATTEND Family Medicine
DX: E11.69 Type 2 diabetes mellitus with other specified complication (principal)

== ENCOUNTER → 2022-11-17 | Outpatient (CLI) | payer OTHER, MEDICAID | LOC: M WHC 12:09 | PROVIDERS: ATTEND Family Medicine | DX: Z53.9 Procedure and treatment not carried out, unspecified reason (principal) ==

== ENCOUNTER → 2023-01-29 | Outpatient (REF) | payer OTHER, MEDICAID ==
[2023-01-29 14:02] LABS: HEMOGLOBIN A1c 6.6 % (4.0-6.0)
[2023-01-29 14:27] LABS: ALBUMIN 3.8 G/DL (3.2-5.2); ALKALINE PHOSPHATASE 93 U/L (46-116); ALT/SGPT 20 U/L (7.0-40); AST/SGOT 12 U/L (<34); BLOOD UREA NITROGEN 13 MG/DL (9-23); CALCIUM LEVEL 8.7 MG/DL (8.5-10.1); CARBON DIOXIDE LEVEL 23 MMOL/L (20-31); CHLORIDE LEVEL 105 MMOL/L (98-107); CREATININE FOR GFR 0.59 MG/DL (0.55-1.30); GLOMERULAR FILTRATION RATE > 60.0 (>58); GLUCOSE, FASTING 74 MG/DL (60-100); POTASSIUM SERUM 3.6 MMOL/L (3.5-5.1); SODIUM LEVEL 138 MMOL/L (136-145); TOTAL PROTEIN 6.2 G/DL (5.7-8.2)
== END ==
LOC: M LABDRWAD 12:35
PROVIDERS: ATTEND Family Medicine
DX: E11.69 Type 2 diabetes mellitus with other specified complication (principal)

== ENCOUNTER → 2023-11-10 | Outpatient (REF) | payer OTHER, MEDICAID | LOC: M SFHCADAM 16:42 | PROVIDERS: ATTEND Family Medicine | DX: E11.69 Type 2 diabetes mellitus with other specified complication (principal) ==

== ENCOUNTER → 2023-11-12 | Outpatient (REF) | payer OTHER, MEDICAID ==
[2023-11-12 13:28] LABS: HEMOGLOBIN A1c 7.5 % (4.0-6.0)
[2023-11-12 13:29] LABS: ALBUMIN 3.6 G/DL (3.2-5.2); ALKALINE PHOSPHATASE 128 U/L (46-116); ALT/SGPT 37 U/L (7.0-40); AST/SGOT 15 U/L (<34); BILIRUBIN,TOTAL 0.3 MG/DL (0.3-1.2); BLOOD UREA NITROGEN 16 MG/DL (9-23); CALCIUM LEVEL 9.5 MG/DL (8.5-10.1); CARBON DIOXIDE LEVEL 28 MMOL/L (20-31); CHLORIDE LEVEL 102 MMOL/L (98-107); GLOMERULAR FILTRATION RATE > 60.0 (>58); GLUCOSE, FASTING 131 MG/DL (60-100); POTASSIUM SERUM 4.2 MMOL/L (3.5-5.1); SODIUM LEVEL 138 MMOL/L (136-145); TOTAL PROTEIN 6.4 G/DL (5.7-8.2)
== END ==
LOC: M SFHCADAM 08:34
PROVIDERS: ATTEND Family Medicine
DX: E11.69 Type 2 diabetes mellitus with other specified complication (principal)

== ENCOUNTER → 2023-12-11 | Outpatient (CLI) | payer OTHER | LOC: M WHC 08:30 | PROVIDERS: ATTEND Family Medicine | DX: Z12.31 Encounter for screening mammogram for malignant neoplasm of breast (principal); R92.323 Mammographic fibroglandular density, bilateral breasts ==

== ENCOUNTER → 2024-02-17 | Outpatient (REF) | payer OTHER, MEDICAID ==
[2024-02-17 13:04] LABS: HEMOGLOBIN A1c 7.5 % (4.0-6.0)
[2024-02-17 13:17] LABS: ALBUMIN 3.7 G/DL (3.2-5.2); ALKALINE PHOSPHATASE 101 U/L (46-116); ALT/SGPT 27 U/L (7.0-40); AST/SGOT 16 U/L (<34); BILIRUBIN,TOTAL 0.5 MG/DL (0.3-1.2); BLOOD UREA NITROGEN 13 MG/DL (9-23); CALCIUM LEVEL 9.1 MG/DL (8.5-10.1); CARBON DIOXIDE LEVEL 25 MMOL/L (20-31); CHLORIDE LEVEL 107 MMOL/L (98-107); CREATININE FOR GFR 0.56 MG/DL (0.55-1.30); GLOMERULAR FILTRATION RATE > 60.0 (>58); GLUCOSE, FASTING 86 MG/DL (60-100); POTASSIUM SERUM 4.2 MMOL/L (3.5-5.1); SODIUM LEVEL 141 MMOL/L (136-145); TOTAL PROTEIN 6.3 G/DL (5.7-8.2)
== END ==
LOC: M SFHCADAM 08:21
PROVIDERS: ATTEND Family Medicine
DX: E11.69 Type 2 diabetes mellitus with other specified complication (principal)

== ENCOUNTER → 2024-05-27 | Outpatient (CLI) | payer OTHER ==
[2024-05-27 14:00] LABS: ALKALINE PHOSPHATASE 108 U/L (35-104); ALT/SGPT 24 U/L (7.0-40); AST/SGOT 12 U/L (<34); BILIRUBIN,TOTAL 0.8 MG/DL (0.3-1.2); BLOOD UREA NITROGEN 14 MG/DL (9-23); CALCIUM LEVEL 10.2 MG/DL (8.5-10.1); CARBON DIOXIDE LEVEL 25 MMOL/L (20-31); CHLORIDE LEVEL 109 MMOL/L (98-107); CREATININE FOR GFR 0.64 MG/DL (0.55-1.30); GLOMERULAR FILTRATION RATE > 60.0 (>58); GLUCOSE, FASTING 79 MG/DL (60-100); POTASSIUM SERUM 3.9 MMOL/L (3.5-5.1); SODIUM LEVEL 142 MMOL/L (136-145); TOTAL PROTEIN 6.9 G/DL (5.7-8.2)
[2024-05-27 14:13] LABS: HEMOGLOBIN A1c 7.2 % (4.0-6.0)
[2024-05-27 14:16] LABS: CREATININE, URINE 234.9 MG/DL; MAU/CREAT RATIO 2.9 MCG/MG (0.0-30.0)
== END ==
LOC: M PLALAB 10:57
PROVIDERS: ATTEND Family Medicine
DX: E11.69 Type 2 diabetes mellitus with other specified complication (principal)

== ENCOUNTER → 2024-09-05 | Outpatient (CLI) | payer OTHER ==
[2024-09-05 11:26] LABS: HEMOGLOBIN A1c 7.3 % (4.0-6.0)
[2024-09-05 11:27] LABS: ALBUMIN 3.9 G/DL (3.2-5.2); ALKALINE PHOSPHATASE 117 U/L (35-104); ALT/SGPT 32 U/L (7.0-40); AST/SGOT 12 U/L (<34); BILIRUBIN,TOTAL 0.4 MG/DL (0.3-1.2); BLOOD UREA NITROGEN 11 MG/DL (9-23); CALCIUM LEVEL 9.7 MG/DL (8.5-10.1); CARBON DIOXIDE LEVEL 28 MMOL/L (20-31); CHLORIDE LEVEL 105 MMOL/L (98-107); CREATININE FOR GFR 0.63 MG/DL (0.55-1.30); GLOMERULAR FILTRATION RATE > 60.0 (>58); GLUCOSE, FASTING 125 MG/DL (60-100); POTASSIUM SERUM 4.5 MMOL/L (3.5-5.1); SODIUM LEVEL 142 MMOL/L (136-145); TOTAL PROTEIN 7.1 G/DL (5.7-8.2)
== END ==
LOC: M PLALAB 09:09
PROVIDERS: ATTEND Family Medicine
DX: E11.69 Type 2 diabetes mellitus with other specified complication (principal)

== ENCOUNTER → 2024-09-07 | Outpatient (CLI) | payer OTHER, MEDICAID | LOC: M WHC 10:49 | PROVIDERS: ATTEND Family Medicine | DX: Z12.31 Encounter for screening mammogram for malignant neoplasm of breast (principal); Z53.9 Procedure and treatment not carried out, unspecified reason ==

== ENCOUNTER → 2025-02-28 | Outpatient (REF) | payer OTHER, MEDICAID ==
[~2025-02-28] MED LIST changes: +GLIP-318 PO; -GLIP5TAB20 PO
== END ==
LOC: M SFHCADAM 09:55
PROVIDERS: ATTEND Family Medicine
DX: E55.9 Vitamin D deficiency, unspecified (principal)